=== PATIENT | female | born 1960 | race African-American/Black ===

== ENCOUNTER → 2017-09-28 | Outpatient (CLI) | payer BC, OTHER | END | disposition home or self-care (01) | LOC: KCIC MAMMO 15:39 | DX: Z12.31 Encounter for screening mammogram for malignant neoplasm of breast (principal) | CPT/HCPCS: 77067 ==

== ENCOUNTER → 2018-02-14 | Outpatient (CLI) | payer OTHER | END | disposition home or self-care (01) | LOC: ECHO 09:48 | DX: I08.8 Other rheumatic multiple valve diseases (principal); I31.3 Pericardial effusion (noninflammatory) | CPT/HCPCS: 93306 ==

== ENCOUNTER → 2020-10-14 | Outpatient (CLI) | payer OTHER ==
[2016-07-28 11:58] VITALS: BP 176/89
[~2020-10-14] MED LIST: AMLO-187 PO; AMOX500C PO; ATOR20TA58 PO; CARV25TA2 PO; CHLO25TA10 PO; DIGO125T3 PO; FERR325T14 PO; FLUT9.9S NS; FURO40TA4 PO; GLIM4TAB8 PO; INSU100I13 SQ; INSU100V6 SQ; INSU100V9 SQ; LOSA100T14 PO; OMEP40CA7 PO; PANT40TA77 PO; POTA10TA12 PO; PRAV40TA2 PO; SITA100T PO; SPIR25TA5 PO
--- NOTE | 2020-10-14 11:13 | KCIC ---
EXAM: Bilateral digital screening mammogram with tomosynthesis. HISTORY: 60-year-old female presents for screening mammography. TECHNIQUE: Full-field digital craniocaudal and mediolateral oblique 2D and 3D tomosynthesis images of both breasts are obtained for evaluation. Computer aided detection was applied. COMPARISON: 09/28/2017 BREAST PARENCHYMAL DENSITY: Level B - Scattered fibroglandular densities. FINDINGS: There is a tiny cluster of microcalcifications within the posterior slightly superior media l aspect of the left breast, without a clear correlate on prior studies. There are stable areas of no dularity within the lateral left breast. There is a new cardiac pacemaker generator overlying the pos terior superior left breast. There is no architectural distortion. IMPRESSION: BI-RADS Category 0: Incomplete. Additional imaging needed. RECOMMENDATION: Further evaluation with spot magnification views of calcifications within the posteri or slightly superior medial left breast is recommended to better assess calcification morphology. If your mammogram demonstrates that you have dense breast tissue, which could hide abnormalities, and if you have other risk factors for breast cancer that have been identified, you might benefit from s upplemental screening tests that may be suggested by your ordering physician. Dense breast tissue, i n and of itself, is a relatively common condition. This information is not provided to cause undue c oncern, but rather to raise your awareness and to promote discussion with your physician regarding th e presence of other risk factors, in addition to dense breast tissue. A report of your mammography re sults will be sent to you and your physician. You should contact your physician if you have any ques tions or concerns regarding this report. Mammography is a sensitive method for finding small breast cancers, but it does not detect them all a nd is not a substitute for careful clinical examination. A negative mammogram does not negate a clin ically suspicious finding and should not result in delay in biopsying a clinically suspicious abnorma lity. PQRS compliance statement - Patient information was entered into a reminder system with a target due date for the next mammogram. "Our facility is accredited by the [employer] Mammography [employer]." Electronically signed by: Vanessa Walsh MD (10/14/2020 11:10 AM) [id number]
== END ==
LOC: KCIC MAMMO 08:47
PROVIDERS: ATTEND Family Medicine
DX: Z12.31 Encounter for screening mammogram for malignant neoplasm of breast (principal)
CPT/HCPCS: 77063; 77067

== ENCOUNTER → 2020-10-22 | Outpatient (CLI) | payer OTHER ==
[2016-07-28 11:58] VITALS: BP 176/89
--- NOTE | 2020-10-22 16:01 | RAD ---
Exam: Left digital diagnostic mammogram. INDICATION: 60-year-old woman recalled from screening for calcifications in the left breast COMPARISON: Screening mammograms of 09/28/2017, 11/03/2015. TECHNIQUE: Magnification views of the left breast in the CC and MLO projections were obtained. FINDINGS: The cluster of calcifications recalled from screening in the posterior upper outer left breast appear to resemble calcifications associated with a vascular loop and thus could represent early vascular c alcifications. An incidental left chest pacemaker is also noted. IMPRESSION: Probably benign early vascular calcification is in a vessel in the upper outer left breast. BI-RADS Category 3 Probably benign findings Recommend a six-month left digital diagnostic mammogram. Electronically signed by: Marija Grigsby MD (10/22/2020 3:59 PM) [id number]
== END ==
LOC: MAMMO 11:17
PROVIDERS: ATTEND Family Medicine
DX: R92.8 Other abnormal and inconclusive findings on diagnostic imaging of breast (principal)
CPT/HCPCS: 77065

== ENCOUNTER → 2021-07-22 | Day surgery (SDC) | payer OTHER ==
[~2021-07-22] VITALS: Ht 167.6 cm; Wt 95.0 kg
[~2021-07-22] MED LIST changes: +CLOP75TA PO; +EMPA10TA PO; +HYDR-2868 PO; +ISOS30TA19 PO; +LIDOCAINE 2% PF 5 ML VIAL. ONE; +PROPOFOL 10 MG/ML (20ML) VIAL. IV ONE
[2021-07-22 06:50] VITALS: BP 151/76
[2021-07-22] MEDS: IV RINGERS,LACTATED 1000ML 1,000 ML IV SCH (07:09)
[2021-07-22 08:34] VITALS: BP 132/74
== END | disposition home or self-care (01) ==
LOC: ENDOS 06:25
PROVIDERS: ATTEND Internal Medicine Gastroenterology
DX: D50.9 Iron deficiency anemia, unspecified (principal); K64.0 First degree hemorrhoids; R13.10 Dysphagia, unspecified; K63.89 Other specified diseases of intestine; K31.89 Other diseases of stomach and duodenum; I11.0 Hypertensive heart disease with heart failure; I50.9 Heart failure, unspecified; E78.00 Pure hypercholesterolemia, unspecified; K21.9 Gastro-esophageal reflux disease without esophagitis; E11.9 Type 2 diabetes mellitus without complications; M06.9 Rheumatoid arthritis, unspecified; Z90.710 Acquired absence of both cervix and uterus; Z98.890 Other specified postprocedural states; Z86.73 Personal history of transient ischemic attack (TIA), and cerebral infarction without residual deficits; Z79.4 Long term (current) use of insulin; Z79.899 Other long term (current) drug therapy; Z72.89 Other problems related to lifestyle
CPT/HCPCS: 43235; 43450; 45378; J2704

== ENCOUNTER → 2021-08-05 | Outpatient (CLI) | payer OTHER ==
[2021-07-22 08:34] VITALS: BP 132/74
[~2021-08-05] MED LIST changes: -LIDOCAINE 2% PF 5 ML VIAL. ONE; -PROPOFOL 10 MG/ML (20ML) VIAL. IV ONE
--- NOTE | 2021-08-05 13:05 | KCIC ---
Study: DG SMALL BOWEL FOLLOW THROUGH Indication: Iron deficiency anemia. Comparison: None. Technique/Findings: A rehabilitation engineer radiograph was obtained of the abdomen/pelvis. Subsequent oral administration of barium and a dditional abdominopelvic radiographs obtained to assess for contrast propagation into the colon. Afte r contrast reached the colon real-time fluoroscopic evaluation of the small bowel with jonh silvestre. Fluoroscopy time: 2 minutes Fluoroscopic images: 11 The rehabilitation engineer image reveals a mild volume of well-formed stool scattered throughout the colon. Incomplete ly characterized degenerative changes of the lumbar spine appearing greatest at L4-L5. Mild arthrosis at the hips. The bones appear somewhat osteopenic but this would be better assessed with a DEXA scan . Relatively rapid propagation of contrast to the colon occurring within 30 minutes. Normal course and caliber of the small bowel. Normally located ligament of Treitz. Spacing and thickness of the mucosal folds is within normal limits. No stricture or fluoroscopic evidence for a mass. Unremarkable termin al ileum. Impression: Unremarkable small bowel series with normal course and caliber of the small bowel. No fluoroscopicall y apparent mucosal abnormality. Electronically signed by: LANG WRAY MD (08/05/2021 1:03 PM) [id number]
== END ==
LOC: KCIC 08:35
PROVIDERS: ATTEND Internal Medicine Gastroenterology
DX: D50.9 Iron deficiency anemia, unspecified (principal); M16.0 Bilateral primary osteoarthritis of hip
CPT/HCPCS: 74250